=== PATIENT | male | born 1985 ===

== ENCOUNTER 2021-12-26 14:17 | Emergency (ER) | payer SELFPAY ==
[~2021-12-26] VITALS: Ht 188 cm; Wt 104.3 kg
[~2021-12-26 14:17] MED LIST: ACET325 PO; AZIT250 PO; BENZ100A PO; HYDACE5 PO; IBUP400 PO; METCAR500 PO; NAPR500 PO; PROM25 PO; RXHYDACE PO
[2021-12-26] MEDS ORDERED: VALACYCLOVIR1000 MG PO (15:06)
[2021-12-26] MEDS ORDERED: Prednisone20 MG PO (15:06)
== END 2021-12-26 15:15 | disposition home or self-care (01) ==
LOC: ER 14:17
DX: G51.0 Bell's palsy (principal)
CPT/HCPCS: 99283